=== PATIENT | male | born 1975 | race Caucasian/White ===

== ENCOUNTER 2022-01-14 07:19 | Outpatient (CLI) | payer BC, SELFPAY ==
--- NOTE | ~2022-01-14 | US_ITS ---
EXAMINATION: US right upper quadrant DATE: 01/14/2022 08:12 INDICATION: Jaundice, hepatomegaly TECHNIQUE: Multiple grayscale and Doppler ultrasound images of the abdomen were obtained. COMPARISON: None available FINDINGS: The head and body of the pancreas are normal. The pancreatic tail is obscured by bowel gas. There is a 4.8 x 4.7 x 4.0 cm mildly hyperechoic mass of the right hepatic lobe. There is a 2.3 cm c yst of the right hepatic lobe. The liver is otherwise normal with normal echogenicity and echotexture . No surface nodularity. Normal hepatopetal flow in the main portal vein. The gallbladder is surgical ly absent. The normal common bile duct measures 5 mm. IMPRESSION: 1. Indeterminate 4.8 cm mass of the right hepatic lobe. Recommend comparison with any available prior imaging. If unavailable, further evaluation by CT or MRI without and with contrast is recommended. Reviewed, dictated and finalized at location B. IMPRESSION: 1. Indeterminate 4.8 cm mass of the right hepatic lobe. Recommend comparison wi th any available prior imaging. If unavailable, further evaluation by CT or MRI without and with contrast is recommended.
== END 2022-01-14 07:20 | disposition home or self-care (01) ==
PROVIDERS: PCP Family Medicine; Visit Provider Family Medicine
DX: R16.0 Hepatomegaly, not elsewhere classified (principal); R17 Unspecified jaundice
CPT/HCPCS: 76705

== ENCOUNTER 2022-01-16 11:26 | Outpatient (CLI) | payer BC, SELFPAY ==
--- NOTE | ~2022-01-16 | CT_ITS ---
EXAMINATION: CT abdomen w con INDICATION: Other specified diseases of the liver TECHNIQUE: Computed tomographic images of the abdomen and pelvis were obtained after the administrati on of 100 cc of Omnipaque 350 intravenous contrast. The dose-length product (DLP) was 306.59 mGy-cm. Automated exposure control and iterative reconstruction technique were employed. COMPARISON: Ultrasound, 01/14/2022 FINDINGS: There is a 5.1 x 4.7 cm mass of the right hepatic lobe which demonstrates interrupted perip heral nodular enhancement, consistent with a hemangioma. There is an adjacent 3.1 x 2.9 cm hypoattenu ating mass measuring soft tissue density. There is a 1.4 cm cyst at the caudal aspect of the right li guy. The gallbladder is surgically absent. The spleen, pancreas, and adrenal glands are normal. There is a 1.3 cm cyst of the left kidney. There are at least three nonobstructing stones of the left kidn ey which measure up to 6 mm. The right kidney is located low in the abdomen. There is a 4 mm nonobstr ucting stone of the right kidney. There are no pathologically enlarged abdominal lymph nodes. The charu endix is normal. There is no free intraperitoneal gas or evidence of bowel obstruction. IMPRESSION: 1. Liver hemangioma corresponding to the larger mass described on CT. 2. Subtle adjacent hypoattenuating mass of the liver which is indeterminate. Follow-up MRI without an d with contrast is recommended. 3. Bilateral nephrolithiasis. Reviewed, dictated and finalized at location B. IMPRESSION: 1. Liver hemangioma corresponding to the larger mass described on CT. 2. Subtle adjacent hypoattenuating mass of the liver which is indeterminate. Fo llow-up MRI without and with contrast is recommended. 3. Bilateral nephrolithiasis.
== END 2022-01-16 11:27 | disposition home or self-care (01) ==
PROVIDERS: PCP Family Medicine; Visit Provider Family Medicine
DX: K76.89 Other specified diseases of liver (principal); N20.0 Calculus of kidney
CPT/HCPCS: 74160; Q9967

== ENCOUNTER 2022-01-31 07:25 | Outpatient (CLI) | payer BC, SELFPAY ==
--- NOTE | ~2022-01-31 | MR_ITS ---
EXAMINATION: MR abdomen wo/w con DATE: 01/31/2022 08:54 INDICATION: Other specified diseases of liver. TECHNIQUE: Magnetic resonance imaging (MRI) of the abdomen was performed without and with 19 mL Multi Sarah intravenous contrast. COMPARISON: CT abdomen 01/16/2022, ultrasound 01/14/2022 FINDINGS: There is a 5.4 cm mass in the liver with interrupted peripheral puddling of contrast, consistent with a hemangioma. To the right of the mass, there is transient hepatic intensity difference measuring 3. 4 cm characterized by delayed enhancement without abnormality on other sequences. There is a 1.7 cm c yst in right hepatic lobe. The gallbladder is absent. The spleen, pancreas, and adrenal glands are no rmal. 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 The re is a 15 mm cyst in left kidney. There are no dilated loops of bowel. There are no pathologically e nlarged lymph nodes. There is no free intraperitoneal fluid. IMPRESSION: 1. Liver hemangioma with adjacent transient hepatic intensity difference correlating with the finding s by CT. Reviewed, dictated and finalized at location A. IMPRESSION: 1. Liver hemangioma with adjacent transient hepatic intensity difference correl ating with the findings by CT.
== END 2022-01-31 07:26 | disposition home or self-care (01) ==
PROVIDERS: PCP Family Medicine; Visit Provider Family Medicine
DX: K76.89 Other specified diseases of liver (principal)
CPT/HCPCS: 74183; A9577